=== PATIENT | male | born 1950 | race Caucasian/White ===

== ENCOUNTER 2018-05-27 12:35 | Emergency (ER) | payer OTHER, BC ==
[2018-05-27 12:43] VITALS: BMI 35.4
[2018-05-27 12:49] VITALS: BP 134/93; PULSE 73; TEMP 98.2
--- NOTE | 2018-05-27 13:28 | PDOC ---
History of Present Illness - General Chief Complaint: Redness To Affected Area Stated Complaint: GROIN REDNESS Time Seen by Provider: 05/27/18 13:28 - History of Present Illness Initial Comments: 05/27/18 13:48 Pt presents to the ED complaining of a two day history of redness and tenderness to his L groin. Denies fevers ,nausea or vomiting or other signs of systemic infection. Denies testicular pain or swelling, denies penile irritation or discharge. Past History - Past Medical History Allergies/Adverse Reactions: Allergies Allergy/AdvReac Type Severity Reaction Status Date / Time ascorbic acid Allergy Verified 05/27/18 12:36 ASORBIC ACID Allergy Intermediate Rash Uncoded 05/27/18 12:36 Home Medications: Ambulatory Orders Enalapril Maleate [Vasotec -] 5 mg PO DAILY #0 tablet 07/26/15 Sulfamethoxazole/Trimethoprim [Bactrim Ds -] 1 tab PO BID #20 tablet 05/27/18 Anemia: No Asthma: No Cancer: No Cardiac Disorders: No CVA: No COPD: No CHF: No Dementia: No Diabetes: No GI Disorders: Yes (COLONIC POLYPS) Disorders: No HTN: Yes Hypercholesterolemia: No Liver Disease: No Seizures: No Thyroid Disease: No - Surgical History Abdominal Surgery: Yes (INGUINAL HERNIA REPAIRED) Appendectomy: Yes Cardiac Surgery: No Cholecystectomy: No Lung Surgery: No Neurologic Surgery: No Orthopedic Surgery: No - Suicide/Smoking/Psychosocial Hx Smoking History: Never smoked Have you smoked in the past 12 months: No Number of Cigarettes Smoked Daily: 0 Hx Alcohol Use: No Drug/Substance Use Hx: No Substance Use Type: None Hx Substance Use Treatment: No Review of Systems - Review of Systems Able to Perform ROS?: Yes Is the patient limited Croatian proficient: No Constitutional: No: Symptoms Reported, See HPI, Chills, Diaphoresis, Fever, Loss of Appetite, Malaise, Night Sweats, Weakness, Weight Stable, Unintentional Wgt. Loss, Unexplained wgt Loss, Other HEENTM: No: Symptoms Reported, See HPI, Eye Pain, Blurred Vision, Tearing, Recent change in vision, Double Vision, Cataracts, Ear Pain, Ocular Prothesis, Ear Discharge, Nose Pain, Nose Congestion, Tinnitus, Nose Bleeding, Hearing Loss , Throat Pain, Throat Swelling, Mouth Pain, Dental Problems, Difficulty Swallowing, Mouth Swelling, Other Respiratory: No: Symptoms reported, See HPI, Cough, Orthopnea, Shortness of Breath, SOB with Exertion, SOB at Rest, Stridor, Wheezing, Productive cough, Hemoptysis, Other Cardiac (ROS): No: Symptoms Reported, See HPI, Chest Pain, Edema, Irregular Heart Rate, Lightheadedness, Palpitations, Syncope, Chest Tightness, Other ABD/GI: No: Symptoms Reported, See HPI, Abdominal Distended, Abd. Pain w/ defecation, Blood Streaked Bowels, Constipated, Diarrhea, Difficulty Swallowing , Nausea, Poor Appetite, Poor Fluid Intake, Rectal Bleeding, Vomiting, Indigestion, Abdominal cramping, Tarry Stools, Other : No: Symptoms Reported, See HPI, Burning, Dysuria, Discharge, Frequency, Flank Pain, Hematuria, Incontinence, Pain, Urgency, Testicular Mass, Testicular Swelling, Lesions, Testicular Pain, Other Musculoskeletal: No: Symptoms Reported, See HPI, Back Pain, Gout, Joint Pain, Joint Swelling, Muscle Pain, Muscle Weakness, Neck Pain, Joint Stiffness, Other Integumentary: No: Symptoms Reported, See HPI, Bruising, Change in Color, Change in Hair/Nails, Dryness, Erythema, Flushing, Lesions, Lumps, Pallor, Pruritus, Rash, Sweating, Other Neurological: No: Symptoms reported, See HPI, Headache, Numbness, Paresthesia, Pre-Existing Deficit, Seizure, Tingling, Tremors, Weakness, Unsteady Gait, Ataxia, Dizziness, Other Psychiatric: No: Anxiety, Depression, Frequent Crying, Stressors, Sleep Pattern Change, Emotional Problems, Mood Swings, Change in Appetite, Other *Physical Exam - Vital Signs Last Vital Signs Temp Pulse Resp BP Pulse Ox 98.2 F 73 16 134/93 100 05/27/18 12:36 05/27/18 12:36 05/27/18 12:36 05/27/18 12:36 05/27/18 12:36 - Physical Exam General Appearance: Yes: Nourished, Appropriately Dressed Neck: positive: Supple Respiratory/Chest: positive: Lungs Clear, Normal Breath Sounds Cardiovascular: positive: Regular Rhythm, Regular Rate, S1, S2 Gastrointestinal/Abdominal: positive: Flat, Soft. negative: Normal Bowel Sounds , Tender, Organomegaly, Pulsatile Mass, Increased Bowel Sounds, Decreased BS, Protuberent, Distended, Guarding, Rebound, Tenderness, Hernia, Mass, Hepatomegaly, Spleenomegaly, Other *DC/Admit/Observation/Transfer Diagnosis at time of Disposition: Cellulitis of groin, left - Discharge Dispostion Disposition: HOME Condition at time of disposition: Good Decision to Admit order: No - Prescriptions Prescriptions: Sulfamethoxazole/Trimethoprim [Bactrim Ds -] 1 tab PO BID #20 tablet - Referrals Referrals: Mic Brothers MD [Primary Care Provider] - - Patient Instructions Printed Discharge Instructions: DI for Cellulitis -- Adult Additional Instructions: you came to the ED for redness and tenderness in the groin which is caused by a skin infection. You should start the antibiotics today and return to the ED in two days for a cellulitis check. You should return to the ED immediately for fever, nausea or vomiting, or redness that is spreading, or other new or worsening symptoms. make sure that you take the antibiotic until it is all gone. - Post Discharge Activity
== END 2018-05-27 13:56 | disposition home or self-care (01) ==
LOC: FER 12:35
DX: L03.314 Cellulitis of groin (principal); I10 Essential (primary) hypertension
CPT/HCPCS: 99281-25

== ENCOUNTER 2018-05-29 09:00 | Emergency (ER) | payer OTHER, BC ==
--- NOTE | 2018-05-29 09:14 | PDOC ---
History of Present Illness - General Chief Complaint: Abscess Boil Stated Complaint: ABSCESS Time Seen by Provider: 05/29/18 09:09 History Source: Patient Exam Limitations: No Limitations - History of Present Illness Initial Comments: 05/29/18 09:10 HPI 68 YOM with h/o HTN presenting with wound check. he was seen in the ED 05/27/18 for a progressive left groin cellulitis x 1 week at that time, denies trauma or drainage. he was placed on bactrim which he has been taking x 2 days, with improvement. continues to have +redness and pain in left groin area. no fever or chills. no AP, n/v/d, urinary sx, testicular pain or swelling. Denies fever, chills, chest pain, SOB, palpitation, dizziness, weakness, N, V, D , abdominal pain, bladder and bowel problems, leg swelling, Past Medical History: HTN Social history: No smoking. No alcohol. No illicit drugs. PMD: Gair Review of systems Constitutional: no fevers or chills. HEENT: no headache or dizziness. CVS: no cp or syncope. Resp: no sob. No cough. Gastrointestinal: no abdominal pain, nausea or vomiting. Genitourinary: no urinary sx, hematuria. no testicular pain or swelling. no dysuria. no urethral discharge. MUSCULOSKELETAL: No joint pain and swelling. No neck or back pain. SKIN: +redness and developing cellulitis/abscess, no discharge, no rash. Hematologic: no easy bruising/bleeding. NEUROLOGIC: No headache, dizziness, No weakness, numbness or tingling. Allergic/Immunologic: ascorbic acid allergy All other systems reviewed and negative, or as documented in HPI. Physical exam: General: Well appearing, awake and alert, NAD. HEENT: NCAT, PERRL, EOMI, clear conjunctiva, anicteric, moist mucus membranes, clear oropharynx, no oral lesions.. Neck: neck supple, FROM Resp: CTAB, normal and even respirations, no respiratory distress CVS: RRR, no murmurs, 2+ peripheral pulses throughout, no peripheral edema Abdomen: soft, NTND, no peritoneal signs. : left groin area of erythema measuring approx 4x8cm, +fluctuance at center, warm and mildly tender. no palp hernia, normal external genitalia, normal testicular lie, nontender, no erythema or swelling. Back: nontender, normal inspection and ROM MSK: no edema, ARTEAGA x4, ROM intact. No clubbing or cyanosis. normal bulk and tone. Neuro: alert Skin: warm and well perfused, cap refill <2 sec, normal color; +erythema and warmth to the left groin. +fluctuance 05/29/18 09:14 05/29/18 09:31 Past History - Past Medical History Allergies/Adverse Reactions: Allergies Allergy/AdvReac Type Severity Reaction Status Date / Time ascorbic acid Allergy Verified 05/29/18 09:06 ASORBIC ACID Allergy Intermediate Rash Uncoded 05/29/18 09:06 Home Medications: Ambulatory Orders Enalapril Maleate [Vasotec -] 5 mg PO DAILY #0 tablet 07/26/15 Sulfamethoxazole/Trimethoprim [Bactrim Ds -] 1 tab PO BID #20 tablet 05/27/18 Anemia: No Asthma: No Cancer: No Cardiac Disorders: No CVA: No COPD: No CHF: No Dementia: No Diabetes: No GI Disorders: Yes (COLONIC POLYPS) Disorders: No HTN: Yes Hypercholesterolemia: No Liver Disease: No Seizures: No Thyroid Disease: No - Surgical History Abdominal Surgery: Yes (INGUINAL HERNIA REPAIRED) Appendectomy: Yes Cardiac Surgery: No Cholecystectomy: No Lung Surgery: No Neurologic Surgery: No Orthopedic Surgery: No - Suicide/Smoking/Psychosocial Hx Smoking History: Never smoked Have you smoked in the past 12 months: No Number of Cigarettes Smoked Daily: 0 Hx Alcohol Use: No Drug/Substance Use Hx: No Substance Use Type: None Hx Substance Use Treatment: No Procedures - Incision and Drainage I&D Site: Left: Groin Betadine cleansed: Yes Anesthesia: 1% Lidocaine Volume(ml): 3 Blade Size: 11 Attempts: 1 Iodinated Packin/2 in Complications: none Progress: 05/29/18 09:32 copious purulence expelled from wound, no bleeding or pain complications Medical Decision Making - Medical Decision Making 05/29/18 09:34 see procedure note clinically with fluctuant abscess to left groin, responding to bactrim currently nontoxic, no systemic sx I&D performed, copious purulence expelled, iodoform packing to maintain patency. warm soaks topical gauze otc analgesia return in 2 days for wound recheck and packing removal. c/w bactrim course x 10 d. Pt informed of my clinical impression, treatment recommendations and disposition plan. All questions answered to patient's satisfaction and expressed understanding and comfort with this. Reasons for returning to the ED sooner discussed including new or persistent/worsening symptoms with the patient otherwise, follow up with primary care physician. At the time of discharge, the patient is alert, clinically improved, tolerating po and verbalizes understanding of instructions, satisfied with the care received and felt comfortable with the plan. Patient does not suffer from an acute life- threatening medical condition at this time he is safe for outpatient follow-up. *DC/Admit/Observation/Transfer Diagnosis at time of Disposition: Abscess of groin, left - Discharge Dispostion Disposition: HOME Condition at time of disposition: Good Decision to Admit order: No - Referrals Referrals: Mic Brothers MD [Primary Care Provider] - - Patient Instructions Printed Discharge Instructions: DI for Incision and Drainage of a Skin Abscess Additional Instructions: You have had an abscess drained in the Emergency Department and you may have had packing placed in the wound to help the abscess continue to drain at home. Please do not remove the packing. You may shower with the packing in place - let the soapy water clean your wound, do not scrub at it. Keep your wound covered to prevent transmission of infection to other people. Follow up with your primary care physician or in the Emergency Department in 2 days for a wound check and/or packing removal. Return to the Emergency Department immediately if you develop any of the following symptoms: Fevers, Increased redness or swelling around where your abscess was, Increased pain, or Generalized weakness or vomiting continue taking your bactrim x 10 day course as previously prescribed - Post Discharge Activity
[2018-05-29 09:18] VITALS: BP 154/90; PULSE 78; TEMP 98.3; BMI 35.4
== END 2018-05-29 09:41 | disposition home or self-care (01) ==
LOC: SUPCPDRO 09:00 → FER 09:00
PROC: 0H9AXZZ Drainage of Inguinal Skin, External Approach (ICD-10-PCS; principal; 2018-05-29)
DX: L02.214 Cutaneous abscess of groin (principal)
CPT/HCPCS: 99282-25

== ENCOUNTER 2018-05-31 08:35 | Emergency (ER) | payer OTHER, BC ==
[2018-05-31 08:43] VITALS: BP 137/87; PULSE 65; TEMP 98.5; BMI 35.4
--- NOTE | 2018-05-31 08:55 | PDOC ---
Suture Removal/Wound Check HPI - History of Present Illness Chief Complaint: Revisit,Wound Recheck Stated Complaint: WOUND CHECK Time Seen by Provider: 05/31/18 08:52 History Source: Yes: Patient Exam Limitations: Yes: No Limitations - Onset of Previous Treatment Comment:: 05/31/18 08:55 HPI 68 YOM with h/o HTN presenting with wound check. he was seen in the ED 05/27/18 for a progressive left groin cellulitis x 1 week at that time, s/p I&D 2 days ago with wound packing placed. he has been taking his bactrim as prescribed with improvement. continues to have +redness and pain in left groin area, but much improved. no fever or chills. no AP, n/v/d, urinary sx, testicular pain or swelling. Denies fever, chills, chest pain, SOB, palpitation, dizziness, weakness, N, V, D , abdominal pain, bladder and bowel problems, leg swelling, Past Medical History: HTN Social history: No smoking. No alcohol. No illicit drugs. PMD: Gair Review of systems Constitutional: no fevers or chills. HEENT: no headache or dizziness. CVS: no cp or syncope. Resp: no sob. No cough. Gastrointestinal: no abdominal pain, nausea or vomiting. MUSCULOSKELETAL: No joint pain and swelling. No neck or back pain. SKIN: +redness and developing cellulitis/abscess, mild discharge, no rash. Hematologic: no easy bruising/bleeding. NEUROLOGIC: No headache, dizziness, No weakness, numbness or tingling. Allergic/Immunologic: ascorbic acid allergy All other systems reviewed and negative, or as documented in HPI. Physical exam: General: Well appearing, awake and alert, NAD. Abdomen: soft, NTND, no peritoneal signs. : left groin area of faint erythema measuring approx 2x6cm, packing in place, nontender, no palp hernia, normal external genitalia, normal testicular lie, nontender, no erythema or swelling. Back: nontender, normal inspection and ROM MSK: ARTEAGA x4, ROM intact. Neuro: alert Skin: warm and well perfused, cap refill <2 sec, normal color; +very faint erythema to the left groin. +drainage on gauze, no tenderness, no fluctuance, no firmness 05/31/18 08:57 Past History - Past Medical History Allergies/Adverse Reactions: Allergies Allergy/AdvReac Type Severity Reaction Status Date / Time ascorbic acid Allergy Verified 05/31/18 08:38 ASORBIC ACID Allergy Intermediate Rash Uncoded 05/29/18 09:06 Home Medications: Ambulatory Orders Enalapril Maleate [Vasotec -] 5 mg PO DAILY #0 tablet 07/26/15 Sulfamethoxazole/Trimethoprim [Bactrim Ds -] 1 tab PO BID #20 tablet 05/27/18 Anemia: No Asthma: No Cancer: No Cardiac Disorders: No CVA: No COPD: No CHF: No Dementia: No Diabetes: No GI Disorders: Yes (COLONIC POLYPS) Disorders: No HTN: Yes Hypercholesterolemia: No Liver Disease: No Seizures: No Thyroid Disease: No - Surgical History Abdominal Surgery: Yes (INGUINAL HERNIA REPAIRED) Appendectomy: Yes Cardiac Surgery: No Cholecystectomy: No Lung Surgery: No Neurologic Surgery: No Orthopedic Surgery: No - Suicide/Smoking/Psychosocial Hx Smoking History: Never smoked Have you smoked in the past 12 months: No Number of Cigarettes Smoked Daily: 0 Hx Alcohol Use: No Drug/Substance Use Hx: No Substance Use Type: None Hx Substance Use Treatment: No *Physical Exam - Vital Signs Last Vital Signs Temp Pulse Resp BP Pulse Ox 98.5 F 65 18 137/87 99 05/31/18 08:36 05/31/18 08:36 05/31/18 08:36 05/31/18 08:36 05/31/18 08:36 Medical Decision Making - Medical Decision Making 05/31/18 08:59 History of physical examination as documented. Vital signs are within normal limits. No fever, no systemic symptoms He had abscess drained to the left groin 2 days ago by me, with wound packing placed and subsequently removed today. No further signs of progressive infection. He has been compliant with his Bactrim and improving clinically. Arch with wound care instructions, warm soaks to the area and proper hygiene, avoid triggers for abscess development DISCharge in stable condition, return precautions provided, follow with primary care doctor *DC/Admit/Observation/Transfer Diagnosis at time of Disposition: Abscess of groin, left, Cellulitis of groin, left - Discharge Dispostion Disposition: HOME Condition at time of disposition: Improved Decision to Admit order: No - Referrals - Patient Instructions Printed Discharge Instructions: DI for Wound Infection, DI for Skin Abscess Additional Instructions: You have had an abscess drained in the Emergency Department and you may have had packing removed, keep the area clean - let the soapy water clean your wound, do not scrub at it. Keep your wound covered to prevent transmission of infection to other people. Follow up with your primary care physician or in the Emergency Department in 2 days for a wound check and/or packing removal. Return to the Emergency Department immediately if you develop any of the following symptoms: Fevers, Increased redness or swelling around where your abscess was, Increased pain, or Generalized weakness or vomiting continue taking your bactrim x 10 day course as previously prescribed - Post Discharge Activity
== END 2018-05-31 09:07 | disposition home or self-care (01) ==
LOC: FER 08:35
DX: Z48.01 Encounter for change or removal of surgical wound dressing (principal); I10 Essential (primary) hypertension
CPT/HCPCS: 99281-25